=== PATIENT | female | born 1975 | race Caucasian/White ===

== ENCOUNTER 2017-05-14 05:37 | Outpatient (CLI) | payer BC ==
[~2017-05-14] VITALS: Ht 162.6 cm; Wt 79.4 kg
[2017-05-14] MEDS ORDERED: BUPR150T9 PO (16:10)
[2017-05-14] MEDS ORDERED: ATEN25TA PO (16:10)
== END 2017-05-14 16:11 ==
LOC: PREOP 05:37
PROVIDERS: ATTEND Surgery
DX: Z01.818 Encounter for other preprocedural examination (principal); K82.8 Other specified diseases of gallbladder

== ENCOUNTER 2017-05-16 06:04 | Day surgery (SDC) | payer BC ==
[~2017-05-16] VITALS: Ht 162.6 cm; Wt 79.4 kg
[~2017-05-16 06:04] MED LIST: ATEN25TA PO; BUPR150T9 PO
--- OUTSIDE RECORDS SUMMARY | 2017-05-16 06:07 | XMS REPORT | Continuity of Care Document ---
Author Author [facility] Organization [facility] Address Unknown Phone Unavailable Allergies Active Description Code Type Severity Reaction Onset Reported/Identified Relationship to Patient Clinical Status Yes No Known Drug Allergies [id number] Drug Allergy Unknown N/ A 04/22/2014 Yes Penicillins [id number] Drug Allergy Unknown RASH 05/14/2017 Medications Problems Date Dx Coded Attending Type Code Diagnosis Diagnosed By 05/15/2017 FRANCINE CANSECO, YULI Benavides Ot K82.8 OTHER SPECIFIED DISEASES OF GALLBLADDER 05/15/2017 FRANCINE CANSECO, YULI Benavides Ot Z01.818 ENCOUNTER FOR OTHER PREPROCEDURAL EXAMIN Procedures Results Encounters ACCT No. Visit Date/Time Discharge Status Pt. Type Provider Facility Loc./Unit Complaint [id number] 05/14/2017 05:37:00 2016 16:11:00 DIS Outpatient FRANCINE CANSECO, YULI Benavides [facility] PREOP ROBOTIC LAP CHOLECYSTECTOMY [id number] 04/22/2014 08:05:00 2013 23:59:59 CLS Outpatient [id number] 05/16/2017 11:30:00 PEN Preadmit YULI ESCAMILLA MD [facility] SDC GALLBLADDER DYSKINESIA
[2017-05-16] MEDS ORDERED: proPOfol 200 MG/20 ML (DIPRIVAN) VIAL IV ONE (06:43)
[2017-05-16] MEDS ORDERED: LIDOCAINE PF 2% 5 ML (XYLOCAINE) VIAL ONE (06:43)
[2017-05-16] MEDS ORDERED: SEVOFLURANE (ULTANE) 15 ML INHAL SOLN ONE ×5 (06:43→08:43)
[2017-05-16] MEDS ORDERED: ONDANSETRON 4 MG/2 ML (SDV) Z0FRAN ONE ×2 (06:43→08:47)
[2017-05-16] MEDS ORDERED: fentaNYL INJECTION 100 MCG/2 ML AMP ONE ×2 (06:43→09:03)
[2017-05-16] MEDS ORDERED: ROCURONIUM 50 MG/5 ML (ZEMURON) VIAL IV ONE (06:43)
[2017-05-16] MEDS ORDERED: DEXAMETHASONE 10 MG/ML (DECADRON) 1 ML VIAL ONE (06:43)
[2017-05-16] MEDS ORDERED: MIDAZOLAM 2 MG/2 ML (VERSED) VIAL ONE (06:44)
[2017-05-16] MEDS ORDERED: NS (IVPB) 50 ML ONE (06:50)
[2017-05-16] MEDS ORDERED: ceFAZolin 1,000 MG (ANCEF) VIAL ONE (06:50)
[2017-05-16 06:52] LABS: RED BLOOD COUNT 4.47 10^6/uL (4.35-5.85); RED CELL DISTRIBUTION WIDTH 12.9 % (10.0-14.5); WHITE BLOOD COUNT 6.7 10^3/uL (4.3-11.0)
[2017-05-16] MEDS ORDERED: ceFAZolin 1 GM/NS 50 ML IVPB IV ONE ×2 (07:00)
[2017-05-16] MEDS ORDERED: metroNIDAZOLE 500 MG/100 ML IVPB (PRE-MIX) IV ONE (07:00)
[2017-05-16] MEDS: LACTATED RINGERS 1,000 ML IV PRN ×2 (07:04→09:10)
[2017-05-16 07:10] VITALS: BP 127/75
[2017-05-16 07:19] LABS: ALANINE AMINOTRANSFERASE 35 U/L (0-55); ALBUMIN 4.3 GM/DL (3.2-4.5); ANION GAP 9 MMOL/L (5-14); ASPARTATE AMINO TRANSFERASE 24 U/L (5-34); BILIRUBIN,TOTAL 0.3 MG/DL (0.1-1.0); BLOOD UREA NITROGEN 11 MG/DL (7-18); BUN/CREATININE RATIO 15; CALCIUM 9.3 MG/DL (8.5-10.1); CARBON DIOXIDE 26 MMOL/L (21-32); CHLORIDE 105 MMOL/L (98-107); CREATININE SERUM 0.74 MG/DL (0.60-1.30); GFR ESTIMATED > 60; GLUCOSE 90 MG/DL (70-105); POTASSIUM 3.9 MMOL/L (3.6-5.0); SODIUM 140 MMOL/L (135-145); TOTAL PROTEIN 8.1 GM/DL (6.4-8.2)
--- NOTE | 2017-05-16 07:41 | Progress Note-Pre Operative ---
Pre-Operative Progress Note H&P Reviewed The H&P was reviewed, patient examined and no changes noted. Date Seen by Provider: May 09, 2017 Time Seen by Provider: 16:45 Date H&P Reviewed: May 16, 2017 Time H&P Reviewed: 07:40 Pre-Operative Diagnosis: Chronic cholecystitis YULI ESCAMILLA MD May 16, 2017 7:40 am
[2017-05-16] MEDS ORDERED: BUP/EPI 0.5% 1:200,000 (MARCAINE) 10ML VIAL IJ ONE (07:59)
[2017-05-16] MEDS ORDERED: morphine INJ 10 MG/ML 1ML (SYR OR VIAL) ONE (08:47)
[2017-05-16] MEDS ORDERED: LACTATED RINGERS 1,000 ML IV ONE (08:52)
[2017-05-16] MEDS ORDERED: HYDR-3820 PO (09:16)
--- NOTE | 2017-05-16 09:16 | Operative Report ---
Operative Report Date of Procedure/Surgery May 16, 2017 Surgeon (s) YULI ESCAMILLA MD Procurement Coordinator (s): Not applicable Post-Operative Diagnosis Same Procedure Performed Robotic-assisted cholecystectomy Description of Procedure Anesthesia Type: General Estimated blood loss (mL): Minimal Specimen(s) collected/removed Gallbladder Description of the Procedure Indication for procedure: This lady presented with severe symptoms due to chronic, acalculous cholecystitis. Despite a reasonably normal ejection fraction of the gallbladder during the conduct of HIDA scan, due to reproduction of her symptoms, it is felt reasonable to offer cholecystectomy. Informed consent was obtained after reviewing the procedure and complications of wound infection, bile leak and persistence of her symptoms. Description of the procedure: She was placed supine on the operative table and general anesthesia induced using an endotracheal tube. Ancef and Flagyl were administered intravenously as prophylaxis against wound infection. Sequential compression devices were placed around her legs, to minimize the risk of venous thrombosis. Abdomen was prepared and draped in the usual sterile manner. A supraumbilical incision was made and pneumoperitoneum established using a Veress needle. Intra -abdominal pressure was maintained at 15 mmHg, using carbon dioxide insufflation. A 12 mm trocar was placed and anatomy visualized using the high definition, 3-dimensional laparoscope associated with da Jag system. Bulbar was thick with omental adhesions, indicating chronic cholecystitis. Under direct view, I placed an 8 mm cannula over each side of the abdomen, followed by a 5 mm trocar over the left upper quadrant. The patient was then turned into reverse Trendelenburg position with the right side tilted up. Robotic system was then docked in place. The fundus of the gallbladder was retracted cephalad and omentum taken down using hook cautery. Infundibulum was then grasped with robotic Cadiere forceps and thickened tissue around Calot's triangle incised using hook cautery, delineating the cystic duct and artery. Both were divided between locking clips. Cholecystectomy was then completed using the hook cautery. A small tear in the gallbladder occurred, resulting in spillage of bile. Subhepatic space was then irrigated with saline and the gallbladder was placed in an Endo Catch bag, being removed via the supraumbilical trocar site. The fascia over this incision was closed using #1 Vicryl using the Dedrick Crane device under direct laparoscopic view. Skin incisions were closed using 4-0 Vicryl, in a subcuticular fashion. 0.5 percent Marcaine with epinephrine was infiltrated along the incisions, both preemptively and at the conclusion of the operation She tolerated the procedure well and was taken back to the nursing area in a stable condition. Findings of the Procedure See operative report Allergies and Home Medications Allergies Coded Allergies: Penicillins (Verified Allergy, Unknown, RASH, 05/14/17) Home Medications Atenolol 25 Mg Tablet, 25 MG PO HS, (Reported) Bupropion HCl 150 Mg Tablet.er, 150 MG PO DAILY, (Reported) YULI ESCAMILLA MD May 16, 2017 9:16 am
--- NOTE | 2017-05-16 09:17 | Discharge Inst-Simple/Standard ---
Discharge Inst-Standard Discharge Medications New, Converted or Re-Newed RX: RX on Chart Patient Instructions/Follow Up Plan of Care/Instructions/FU: Incentive spirometry. Band-Aids off in 48 hours. Follow-up in 3 weeks. Activity as Tolerated: Yes Discharge Diet: No Restrictions YULI ESCAMILLA MD May 16, 2017 9:17 am
[2017-05-16] MEDS ORDERED: NEOSTIGMINE (BLOXIVERZ ) 1 MG/1ML 10 ML VIAL ONE (09:23)
[2017-05-16] MEDS ORDERED: GLYCOPYRROLATE 0.2 MG/ML (ROBINUL) 2 ML VIAL ONE (09:23)
[2017-05-16] MEDS ORDERED: ONDANSETRON 4 MG/2 ML (SDV) Z0FRAN IVP PRN (09:30)
[2017-05-16] MEDS: morphine INJ 10 MG/ML 1ML (SYR OR VIAL) IVP PRN ×2 (09:34→09:39)
[2017-05-16] MEDS ORDERED: HYDROmorphone (DILAUDID) 2 MG/ML VIAL ONE (09:39)
[2017-05-16] MEDS: HYDROmorphone (DILAUDID) 2 MG/ML VIAL IVP PRN ×2 (09:50→10:00)
[2017-05-16 10:20] VITALS: BP 118/74
[2017-05-16 10:50] VITALS: BP 123/76
[2017-05-16 11:20] VITALS: BP 116/73
== END 2017-05-16 11:39 | disposition home or self-care (01) ==
LOC: SDC 06:04
PROVIDERS: ATTEND Surgery
DX: Z79.899 Other long term (current) drug therapy; G43.909 Migraine, unspecified, not intractable, without status migrainosus; K81.1 Chronic cholecystitis
CPT/HCPCS: 36415; 80053; 84703; 85027; 87081; 88304; 94664

== ENCOUNTER 2022-01-21 22:17 | Emergency (ER) | payer BC ==
[~2022-01-21] VITALS: Ht 162 cm; Wt 77.0 kg
[~2022-01-21 22:17] MED LIST changes: +ACHYD1T PO
[2022-01-21 22:31] VITALS: BP 182/84
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
[2022-01-21] MEDS ORDERED: TETANUS,DIPTH,PERTUSS P/F (BOOSTRIX) 0.5 ML VIAL IM ONE (23:15)
[2022-01-22 00:31] LABS: BILIRUBIN,URINE NEGATIVE (NEGATIVE); CLARITY,URINE CLEAR; COLOR,URINE YELLOW; GLUCOSE, URINE (UA) NEGATIVE (NEGATIVE); KETONES,URINE NEGATIVE (NEGATIVE); LEUKOCYTE ESTERASE ,URINE NEGATIVE (NEGATIVE); NITRITE,URINE NEGATIVE (NEGATIVE); PROTEIN,URINE NEGATIVE (NEGATIVE)
[2022-01-22 00:36] LABS: BACTERIA,URINE NEGATIVE /HPF; RBC,URINE RARE /HPF; SQUAMOUS EPITHELIAL CELL,UR 0-2 /HPF
[2022-01-22] MEDS ORDERED: CYCL10TA25 PO (00:41)
[2022-01-22] MEDS ORDERED: CEPH500T PO (00:41)
[2022-01-22] MEDS ORDERED: ONDA4TAB11 PO (00:41)
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
== END 2022-01-22 00:46 | disposition home or self-care (01) ==
LOC: EDUNIT# 22:17 → ER 22:18
DX: S06.0X0A Concussion without loss of consciousness, initial encounter (principal); S01.511A Laceration without foreign body of lip, initial encounter; S40.021A Contusion of right upper arm, initial encounter; G43.909 Migraine, unspecified, not intractable, without status migrainosus; R40.2140 Coma scale, eyes open, spontaneous, unspecified time; R40.2250 Coma scale, best verbal response, oriented, unspecified time; R40.2360 Coma scale, best motor response, obeys commands, unspecified time; Z23 Encounter for immunization; Z79.899 Other long term (current) drug therapy; V86.69XA Passenger of other special all-terrain or other off-road motor vehicle injured in nontraffic accident, initial encounter
CPT/HCPCS: 12011; 70450; 72125; 81000; 90715

== ENCOUNTER 2022-01-28 12:15 | Emergency (ER) | payer BC ==
[~2022-01-28] VITALS: Ht 162 cm; Wt 77.0 kg
[~2022-01-28 12:15] MED LIST changes: +CEPH500T PO; +CYCL10TA25 PO; +ONDA4TAB11 PO
[2022-01-28 12:21] VITALS: BP 175/92
== END 2022-01-28 13:08 | disposition home or self-care (01) ==
LOC: EDUNIT# 12:15 → ER 12:16
DX: Z48.02 Encounter for removal of sutures (principal)